=== PATIENT | male | born 1955 | race Two or more races ===

== ENCOUNTER 2023-11-13 18:38 | Emergency (ER) | payer MEDICAID, OTHER, SELFPAY ==
--- NOTE | 2023-11-13 | ECG_ITS ---
Test Reason : DIZZINESS Blood Pressure : / mmHG Vent. Rate : 074 BPM Atrial Rate : 074 BPM P-R Int : 174 ms QRS Dur : 098 ms QT Int : 400 ms P-R-T Axes : 038 020 056 degrees QTc Int : 444 ms Normal sinus rhythm Normal ECG No previous ECGs available Referred By: Micky Villarreal Electronically Signed By:Rush Benavides
--- NOTE | ~2023-11-13 | CT_ITS ---
EXAMINATION: CT HEAD WITHOUT CONTRAST CLINICAL INFORMATION: Dizziness. Stroke. Headache. COMPARISON: None available. TECHNIQUE: Contiguous axial imaging was performed from the skull base to vertex without intravenous administration of contrast. This CT examination was performed using dose optimization techniques as appropriate, variously including the following: *Automated exposure control. *Adjustment of mA and/or kV according to patient size (this includes techniques or standardized protocols for targeted exams where dose is matched to indication/reason for exam; i.e. extremities or head). *Use of iterative reconstruction technique. DLP: 687 mGy-cm FINDINGS: There is no evidence of acute intracranial hemorrhage or edematous territorial infarction. 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 Associated central volume loss with expansion of the bodies and atria of the lateral ventricles. Otherwise, lopez-white matter differentiation is preserved. Scattered and partially confluent hypoattenuation in the periventricular and deep white matter are consistent with moderate microangiopathy. No evidence of obstructive hydrocephalus. No abnormal mass effect or midline shift. No extra-axial fluid collections. Calcific atherosclerotic disease of the intracranial internal carotid and vertebral arteries. No hyperdense vessel sign. No acute soft tissue or osseous abnormalities. Mild mucosal thickening of the paranasal sinuses. The mastoid air cells and middle ear cavities are clear. Moderate multifocal odontogenic enamel erosions and periapical lucencies, most notably affecting the maxillary left-sided molars. Bilateral lens extractions. CT/CT head/brain wo IV con IMPRESSION: 1. No evidence of acute intracranial hemorrhage or edematous territorial infarction. 2. Moderate underlying microangiopathy and generalized cerebral volume loss. 3. 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
[2023-11-13 19:23] VITALS: BP 136/81; BP 157/79; PULSE 76; PULSE 77; RESP 18; TEMP 36.9; O2SAT 97; O2SAT 98; BMI 35.5
[2023-11-13 19:34] LABS: Glucose, Whole Blood 118 mg/dL (60-115)
[2023-11-13 19:57] LABS: MANUAL DIFF FLAG NO
[2023-11-13 19:59] LABS: Basophils Absolute Auto 0.1 X10*3/uL (0.0-0.2); Basophils Percent Auto 0.5 % (0-2); Eosinophils Absolute Auto 0.1 X10*3/uL (0.0-0.4); Eosinophils Percent Auto 1.5 % (0-4); Hematocrit 48.7 % (42.0-52.0); Hemoglobin 16.2 g/dl (14.0-18.0); Imm Gran Abs Auto 0.05 X10*3/uL (0.00-0.03); Imm Gran Pct Auto 0.5 % (0.0-0.4); Lymphocytes Absolute Auto 1.9 X10*3/uL (1.2-4.9); Lymphocytes Percent Auto 20.4 % (20-40); Mean Corpuscular HGB Conc 33.3 g/dl (31.0-36.0); Mean Corpuscular Hemoglobin 29.1 pg (27.0-33.0); Mean Corpuscular Volume 87.4 fL (80.0-98.0); Monocytes Absolute Auto 0.8 X10*3/uL (0.1-1.2); Monocytes Percent Auto 8.6 % (2-11); Neutrophils Absolute Auto 6.4 x10*3/uL (2.0-8.3); Neutrophils Percent Auto 68.5 % (45-73); Platelet Count 199 X10*3/uL (160-400); Red Blood Count 5.57 X10*6/uL (4.60-5.80); Red Cell Distribution Width 14.1 % (11.0-16.0); White Blood Count 9.3 X10*3/uL (4.8-10.8)
[2023-11-13 20:17] LABS: Alanine Aminotransferase 9 U/L (0-40); Albumin Level 4.8 g/dL (3.5-5.0); Alkaline Phosphatase 88 U/L (39-117); Anion Gap 17 (12-20); Aspartate Amino Transferase 22 U/L (5-37); Bilirubin Total 0.7 mg/dL (0.0-1.0); Blood Urea Nitrogen 17 mg/dL (9-16); Calcium 10.7 mg/dL (8.4-10.2); Carbon Dioxide 28 mmol/L (22-29); Chloride 96 mmol/L (96-108); Creatinine Clr Calc Pharmacy 59.3; Estimated Glomerular Filt Rate 57; Glucose Random 119 mg/dL (60-115); Potassium 5.6 mmol/L (3.3-5.1); Sodium 135 mmol/L (135-145); Total Protein 8.9 g/dL (6.5-8.0)
[2023-11-13 22:38] VITALS: BP 173/88; PULSE 81; RESP 18; TEMP 36.8; O2SAT 98
--- NOTE | 2023-11-13 23:28 | ED_ITS ---
HPI - Dizziness General Chief Complaint: Dizziness Stated Complaint: DIZZY WHEN GETTING UP, BI-LAT LOWER LEG EDEMA Time Seen by Provider: 11/13/23 23:16 Source: patient and family Mode of arrival: ambulatory Limitations: language barrier History of Present Illness HPI Narrative: 68-year-old male with history of hypertension diabetes mellitus who presents emergency department for evaluation of dizziness x2 days. Patient states that states that the dizziness is mainly caused by position change. When he gets up at night to get water he feels dizzy like he is going to pass out. When he gets up in the morning he feels like he is going to pass out. He states that by mid day he feels back to normal. Patient has not had any syncopal episodes. He states he does feel fullness in his head but he denies headache. [place] ago and was taking diabetes medications from [place] and ran out of these medicines but was started on metformin b.i.d. for the last 3 days. He does have a glucometer and he reports that his sugars have been in the 200 range. He states he has had a good appetite has been drinking fluids He denied fever, chills, chest pain, shortness of breath, dyspnea exertion, nausea, vomiting, diarrhea, black stools or bloody stools. Denied arthralgias or myalgias Related Data Allergies Allergy/AdvReac Type Severity Reaction Status Date / Time No Known Allergies Allergy Verified 11/13/23 23:29 Review of Systems 2 Review of Systems: Yes all other systems are reviewed and are negative [facility] Past Medical History [facility] Narrative: Social history: He moved from [place] about 6 months prior he is living with his son and granddaughter who are here in the emergency department with the patient Social History Social History Smoked in Last 30 Days: Yes Use of substances other than those prescribed or required for medical reasons: No Advance Directives: No Advance Directives Information Provided: No Physical Exam 2 Vital Signs: Vital Signs: Last Vital Signs Temp 98.3 F 11/13/23 22:38 Pulse 81 11/13/23 23:49 Resp 14 11/13/23 23:49 BP 161/85 H 11/13/23 23:49 Pulse Ox 98 11/13/23 23:49 O2 Del Method Room Air 11/13/23 23:49 BMI result Body Mass Index 35.5 Vital signs did reveal an elevated blood pressure of 173/88 otherwise unremarkable Exam General: Awake, alert in no distress Head: Normocephalic, atraumatic EENT: PERRL, Lids normal, sclera normal, conjunctiva normal, nose normal , ears normal, throat without erythema or exudates Neck: Supple, no adenopathy, no trachea midline or C-spine tenderness Lung: breath sounds symmetric, no wheezing, rales or rhonchi Chest: symmetric movement, nontender Heart: regular rate and rhythm, normal S1, S2 no murmurs or rubs Abdomen: soft, non-tender, nondistended, normal bowel sounds Back: no vertebral tenderness, no CVAT Extremities: no deformities, moves all extremities symmetrically Skin: no rashes, no lesion, normal color and warmth Neuro: Awake, alert, oriented, normal speech, cranial nerves intact, moves all extremities symmetrically Psych: Pleasant, cooperative Medications Administered Discontinued Medications Generic Name Dose Route Start Last Admin Trade Name Freq PRN Reason Stop Dose Admin Sodium Chloride 250 mls @ 999 mls/hr 11/13/23 23:30 11/14/23 00:18 Ns IV 11/13/23 23:45 999 mls/hr .Q16M JASEN Administration Medical Decision Making Medical Decision Making [facility] Narrative: 68-year-old male history of diabetes mellitus, hyper who presents emergency department for evaluation of lightheadedness with position change the past 2-3 days. Symptoms seem to be related to position change but are not vertigo like symptoms but more like a lightheaded passing out symptom. He states he feels that in the morning and at night and it seems resolved during the day. Patient's vital signs were normal. Physical examination was unremarkable with a nonfocal neurologic exam. Following evaluation was ordered: CBC, CMP, urinalysis, troponin, EKG, orthostatic vital signs, CT scan of the brain 00:53 Patient's laboratory evaluation revealed a normal BUN creatinine of 17 and 1.25. Glucose was normal at 119. Potassium was only slightly elevated at 5.6 but does not need treatment. First troponin was below detectable limits repeat troponin was below detectable limits. CT scan of the head revealed no acute 2 explain the patient's dizziness. Twelve EKG was unremarkable Patient's orthostatic vital signs did not change from lying, sitting to standing. He was also asymptomatic with no dizziness during the orthostatic vital signs This time I do not have a clear etiology for the patient's symptoms but I think that he can be discharged home He was advised to increase his fluid intake. He is advised to sit at the side of his bed for 1-2 minutes before he gets up in the middle night to but the bathroom to see if this improves his symptoms Differential Diagnosis Differential Diagnoses: The differential diagnosis associated with the presentation includes Differential diagnosis includes was not limited to stroke, arrhythmia, GI bleed, anemia, orthostatic hypotension, dehydration, volume depletion, vertigo Admission/Observation Consideration of admission/observation: Escalation of care including admission/observation considered Lab Data [facility] Lab Attestation statement: I reviewed the patient's lab results. See [facility] for my discussion 11/13/23 19:53 11/13/23 19:53 Labs: Lab Results 11/13/23 11/13/23 11/14/23 Range/Units 19:29 19:53 00:16 WBC 9.3 (4.8-10.8) X10*3/uL RBC 5.57 (4.60-5.80) X10*6/uL Hgb 16.2 (14.0-18.0) g/dl Hct 48.7 (42.0-52.0) % MCV 87.4 (80.0-98.0) fL MCH 29.1 (27.0-33.0) pg MCHC 33.3 (31.0-36.0) g/dl RDW 14.1 (11.0-16.0) % Plt Count 199 (160-400) X10*3/uL MPV 10.0 (9.4-12.4) fL Immature Gran % (Auto) 0.5 H (0.0-0.4) % Neut % (Auto) 68.5 (45-73) % Lymph % (Auto) 20.4 (20-40) % Forrest % (Auto) 8.6 (2-11) % Eos % (Auto) 1.5 (0-4) % Baso % (Auto) 0.5 (0-2) % Lymph # (Auto) 1.9 (1.2-4.9) X10*3/uL Forrest # (Auto) 0.8 (0.1-1.2) X10*3/uL Eos # (Auto) 0.1 (0.0-0.4) X10*3/uL Baso # (Auto) 0.1 (0.0-0.2) X10*3/uL Abs Immat Gran (auto) 0.05 H (0.00-0.03) X10*3/uL Absolute Neuts (auto) 6.4 (2.0-8.3) x10*3/uL Absolute Nucleated RBC 0.000 (0.0-0.012) X10*3/uL Nucleated RBC % (auto) 0.0 (0.0-0.2) /100WBC Sodium 135 (135-145) mmol/L Potassium 5.6 H (3.3-5.1) mmol/L Chloride 96 (96-108) mmol/L Carbon Dioxide 28 (22-29) mmol/L Anion Gap 17 (12-20) BUN 17 H (9-16) mg/dL Creatinine 1.25 (0.5-1.4) mg/dL Estim Creat Clear Calc 59.3 Estimated GFR 57 POC Glucose 118 H (60-115) mg/dL Random Glucose 119 H (60-115) mg/dL Calcium 10.7 H (8.4-10.2) mg/dL Total Bilirubin 0.7 (0.0-1.0) mg/dL AST 22 (5-37) U/L ALT 9 (0-40) U/L Alkaline Phosphatase 88 (39-117) U/L Troponin I High Sens < 2.7 < 2.7 (<3.5-35.0) ng/L Total Protein 8.9 H (6.5-8.0) g/dL Albumin 4.8 (3.5-5.0) g/dL Independent Interpretation I performed an independent interpretation of an: EKG Interpretation: Twelve EKG done at 23:37 hours is interpreted by me as follows: Normal sinus rhythm with a rate of 74, normal NH interval, QRS duration QTC interval, no ST segment elevation, no ST segment depression, no PVCs, no PACs, no significant T- wave abnormalities Discharge Plan Discharge Clinical Impression: Dizziness Patient Disposition: Home, Self-Care Instructions: Lightheadedness (ED) Additional Instructions: Your blood work was normal. Your EKG was normal. The CT scan of your brain was normal Your blood pressure and pulse did not change from lying, sitting and standing. At this time I do not have a clear cause for your symptoms however it may be that you need to increase your fluid intake. When you get out of bed sit on the side of the bed for at least 2 minutes before you stand to see if this prevents you from getting dizzy. Continue taking your diabetic medications as prescribed Try calling the following numbers to see if you can get a primary care provider to help you with your medical problems. [facility] PCP referral line [facility] Adult primary care and family medicine [facility]
[2023-11-13 23:48] VITALS: BP 161/85; BP 166/91; PULSE 74; PULSE 81
[2023-11-13 23:49] VITALS: BP 160/89; BP 161/85; PULSE 81; PULSE 83; RESP 14; O2SAT 98
[2023-11-13 23:55] LABS: Troponin-I High Sensitivity < 2.7 ng/L (<3.5-35.0)
[2023-11-14] MEDS: 0.9 % Sodium Chloride 250 ML 999 ML IV (00:18)
--- NOTE | 2023-11-14 00:20 | PC.NURSE ---
Pt medicated per jan. IV placed. Plan of care ongoing.
[2023-11-14 00:40] LABS: Troponin-I High Sensitivity < 2.7 ng/L (<3.5-35.0)
== END 2023-11-14 01:15 | disposition home or self-care (01) ==
PROVIDERS: Emergency Provider Emergency Medicine Emergency Medical Services
DX: R42 Dizziness and giddiness (principal)
CPT/HCPCS: 36415; 70450; 80053; 82947; 84484; 85025; 93005; 99284; 99285

== ENCOUNTER → 2023-11-13 23:37 | Outpatient (BNV) | payer SELFPAY | PROVIDERS: Emergency Provider Emergency Medicine Emergency Medical Services; Visit Provider Internal Medicine Cardiovascular Disease | DX: R42 Dizziness and giddiness (principal) | CPT/HCPCS: 93010 ==

== ENCOUNTER 2024-07-18 13:17 | Outpatient (REF) | payer SELFPAY ==
[2024-07-18 14:54] LABS: Alanine Aminotransferase 6 U/L (0-40); Albumin Level 4.3 g/dL (3.5-5.0); Alkaline Phosphatase 133 U/L (39-117); Anion Gap 13 (12-20); Aspartate Amino Transferase 18 U/L (5-37); Bilirubin Total 0.6 mg/dL (0.0-1.0); Blood Urea Nitrogen 9 mg/dL (9-16); Calcium 10.1 mg/dL (8.4-10.2); Carbon Dioxide 27 mmol/L (22-29); Chloride 101 mmol/L (96-108); Cholesterol 102 mg/dL (<200); Estimated Glomerular Filt Rate > 60; Glucose Random 173 mg/dL (60-115); HDL Cholesterol 35 mg/dL (>40); LDL Cholesterol Calculated 53 mg/dL (<100); Potassium 4.6 mmol/L (3.3-5.1); Sodium 136 mmol/L (135-145); Total Protein 7.8 g/dL (6.5-8.0); Triglycerides 74 mg/dL (<150)
[2024-07-18 15:12] LABS: TSH reflex Free T4 0.57 uIU/mL (0.32-4.0)
== END 2024-07-18 13:18 | disposition home or self-care (01) ==
LOC: HO.CHCLDS 13:17
PROVIDERS: Visit Provider Internal Medicine
DX: E78.2 Mixed hyperlipidemia (principal); I10 Essential (primary) hypertension
CPT/HCPCS: 36415; 80053; 80061; 84443

== ENCOUNTER 2024-08-21 10:31 | Outpatient (REF) | payer SELFPAY ==
[2024-08-21 15:21] LABS: MANUAL DIFF FLAG NO
[2024-08-21 15:26] LABS: Basophils Percent Auto 0.5 % (0-2); Eosinophils Absolute Auto 0.1 X10*3/uL (0.0-0.4); Eosinophils Percent Auto 1.6 % (0-4); Hematocrit 42.1 % (42.0-52.0); Hemoglobin 13.5 g/dl (14.0-18.0); Imm Gran Abs Auto 0.04 X10*3/uL (0.00-0.03); Imm Gran Pct Auto 0.5 % (0.0-0.4); Lymphocytes Absolute Auto 1.7 X10*3/uL (1.2-4.9); Lymphocytes Percent Auto 20.6 % (20-40); Mean Corpuscular HGB Conc 32.1 g/dl (31.0-36.0); Mean Corpuscular Hemoglobin 28.2 pg (27.0-33.0); Mean Corpuscular Volume 88.1 fL (80.0-98.0); Mean Platelet Volume 11.3 fL (9.4-12.4); Monocytes Absolute Auto 0.6 X10*3/uL (0.1-1.2); Monocytes Percent Auto 7.5 % (2-11); Neutrophils Absolute Auto 5.8 x10*3/uL (2.0-8.3); Neutrophils Percent Auto 69.3 % (45-73); Platelet Count 164 X10*3/uL (160-400); Red Blood Count 4.78 X10*6/uL (4.60-5.80); Red Cell Distribution Width 14.6 % (11.0-16.0); White Blood Count 8.3 X10*3/uL (4.8-10.8)
[2024-08-21 16:02] LABS: Alanine Aminotransferase 7 U/L (0-40); Albumin Level 4.2 g/dL (3.5-5.0); Alkaline Phosphatase 106 U/L (39-117); Anion Gap 13 (12-20); Aspartate Amino Transferase 17 U/L (5-37); Bilirubin Total 0.6 mg/dL (0.0-1.0); Blood Urea Nitrogen 11 mg/dL (9-16); Carbon Dioxide 27 mmol/L (22-29); Chloride 101 mmol/L (96-108); Cholesterol 102 mg/dL (<200); Estimated Glomerular Filt Rate > 60; Glucose Fasting 131 mg/dL (60-99); HDL Cholesterol 35 mg/dL (>40); LDL Cholesterol Calculated 50 mg/dL (<100); Potassium 5.4 mmol/L (3.3-5.1); Sodium 136 mmol/L (135-145); Total Protein 7.4 g/dL (6.5-8.0); Triglycerides 88 mg/dL (<150)
[2024-08-21 16:04] LABS: TSH reflex Free T4 0.66 uIU/mL (0.32-4.0); Vitamin D 25-OH Total 23.5 ng/mL (>30)
[2024-08-21 16:08] LABS: Osmolality, Serum 292 mosm/kg (281-305)
[2024-08-21 16:33] LABS: Osmolality Urine 503 mosm/kg (373-1093)
[2024-08-22 15:48] LABS: HCV RNA PCR Qn <1.18 NOT DETECTED Log IU/mL (NOT DETECTED); HCV RNA PCR Qn <15 NOT DETECTED IU/mL (NOT DETECTED)
== END 2024-08-21 10:32 | disposition home or self-care (01) ==
LOC: HO.CHCLDS 10:31
PROVIDERS: PCP Internal Medicine; Visit Provider Internal Medicine
DX: I10 Essential (primary) hypertension (principal)
CPT/HCPCS: 36415; 80053; 80061; 82306; 83930; 83935; 84443; 85025; 87522

== ENCOUNTER 2025-05-22 09:20 | Outpatient (REF) | payer SELFPAY ==
--- OUTSIDE RECORDS SUMMARY | 2025-05-22 09:59 | XMS_ITS | Clinical Summary ---
Author Organization [facility] Address [address] [facility] [address] [place] [address] Phone Care Team Providers Care Revenue Agent Name Role Phone Unavailable Primary Care Provider Unavailabl e Allergies No known active allergies Medications aspirin (ST SHAYNE) 81 MG EC tablet Take 81 mg by mouth 1 (one) time each day Active atorvastatin (LIPITOR) 40 MG tablet Take 40 mg by mouth 1 (one) time each day Active meclizine (ANTIVERT) 12.5 MG tablet Take 12.5 mg by mouth 3 (three) times a day if needed for dizziness Active pantoprazole (PROTONIX) 20 MG EC tablet Take 20 mg by mouth 1 (one) time each day before breakfast Do not crush, chew, or split. Active atenolol (Tenormin) 25 MG tabletIndications :Essential (primary) hypertension Take 1 tablet (25 mg total) by mouth 1 (one) time each day 30 tablet 11 4 Active metFORMIN (GLUCOPHAGE) 500 MG tabletIndications :Type 2 Diabetes Mellitus Take 2 tablets (1,000 mg total) by mouth in the morning and 2 tablets (1,000 mg total) in the evening. Take with meals. 120 tablet 11 4 Active Active Problems Problem Noted Date Diagnosed Date Gas pain 04/20/2024 Hypo-osmolality and hyponatremia 03/20/2024 Assessment & Plan (04/16/2024 11:00 PM EDT): Sodium level normal at 138 as of 02/2024 On sodium chloride 2 gm tabs twice a day Will continue to monitor Edema 03/20/2024 Transient cerebral ischemic attack 03/20/2024 Essential (primary) hypertension 03/20/2024 Overview (04/16/2024): Follow low NA diet Avoid NSAIDs/Decongestant medications Target BP <120/80 Assessment & Plan (04/16/2024 10:58 PM EDT): Blood pressure adequately controlled, better on second reading 120/62 On single therapy Amlodipine 5 mg QD Chronic stable swelling No medication changes made today Hyperlipidemia 03/20/2024 Family History Medical History Relation Comments Cancer Father Relation Status Comments Father Social History Tobacco Use Types Packs/Day Years Used Date Smoking Tobacco: Never Tobacco Cessation:Counseling Given: Not Answered Alcohol Use Standard Drinks/Week Comments Never 0 (1 standard drink = 0.6 oz pur e alcohol) Sex and Gender Information Value Date Recorded Sex Assigned at Not on file Legal Sex Male 4:02 PM EDT Gender Identity Not on file Sexual Orientation Not on file Last Filed Vital Signs Vital Sign Reading Time Taken Comments Blood Pressure 122/60 04/20/2024 3:21 PM EDT Pulse 82 04/20/2024 2:56 PM EDT Temperature - - Respiratory Rate - - Oxygen Saturation - - Inhaled Oxygen Concentration - - Weight 94.8 kg (209 lb) 04/20/2024 2:56 PM EDT Height - - Body Mass Index - - Plan of Treatment Health Maintenance Due Date Last Done Comments Pneumococcal Vaccine: 50+ Ye ars (1 of 2 - PCV) 1974 Colorectal Cancer Screening: Annual FOBT 2004 Colorectal Cancer Screening: Colonoscopy 2004 Colorectal Cancer Screening: Sigmoidoscopy 2004 Diabetes: Ophthalmology Exam 04/20/2024 Diabetes: Pedal Pulse Checked 04/20/2024 Diabetes: Sensory Foot Exam 04/20/2024 Diabetes: Visual Foot Exam 04/20/2024 Diabetes: Hemoglobin A1C 07/21/2024 04/20/2024 Influenza Vaccine (Season Ended) 2025 Hepatitis B Vaccine Aged Out No longe r eligible based on patient's age to complete this topic Procedures Procedure Name Priority Date/Time Associated Diagnosis Comments HEMOGLOBIN A1C Routine 04/20/2024 3:54 PM EDT Gas pain from Last 3 Months or Most Recently Relevant to Health Maintenance Results * (ABNORMAL) Hemoglobin A1c (04/20/2024 3:54 PM EDT) Hemoglobin A1C 7.8(H) 4.8 - 5.6 % See order comments Comment: Prediabetes: 5.7 - 6.4 Diabetes: >6.4 Glycemic control for adults with diabetes: <7.0 Blood specimen (specimen) Venous blood / Unknown 04/20/2024 3:54 PM EDT 04/20/2024 Narrative [facility] - 04/21/2024 4:06 AM EDT Performed at: 01 - [facility] [id number] [place] Animal: Hellen Lindsay MD, Phone: [phone] us Emily [facility] LAB BLOOD ORDERABLES Final Result [facility] See order comments [place] [address] from Last 3 Months or Most Recently Relevant to Health Maintenance
[2025-05-22 14:36] LABS: Alanine Aminotransferase 7 U/L (0-40); Albumin Level 4.2 g/dL (3.5-5.0); Alkaline Phosphatase 114 U/L (39-117); Anion Gap 12 (12-20); Aspartate Amino Transferase 25 U/L (5-37); Bilirubin Direct 0.3 mg/dL (0.0-0.5); Bilirubin Total 0.8 mg/dL (0.0-1.0); Blood Urea Nitrogen 11 mg/dL (9-16); Calcium 9.1 mg/dL (8.4-10.2); Carbon Dioxide 26 mmol/L (22-29); Chloride 104 mmol/L (96-108); Cholesterol 103 mg/dL (<200); Estimated Glomerular Filt Rate > 60; Glucose Random 168 mg/dL (60-115); HDL Cholesterol 36 mg/dL (>40); LDL Cholesterol Calculated 53 mg/dL (<100); Potassium 3.9 mmol/L (3.3-5.1); Sodium 138 mmol/L (135-145); Total Protein 7.2 g/dL (6.5-8.0); Triglycerides 74 mg/dL (<150)
== END 2025-05-22 09:21 | disposition home or self-care (01) ==
LOC: HO.CHCLDS 09:20
PROVIDERS: Visit Provider Student in an Organized Health Care Education/Training Program
DX: I10 Essential (primary) hypertension (principal); E78.1 Pure hyperglyceridemia
CPT/HCPCS: 36415; 80048; 80061; 80076

== ENCOUNTER 2025-08-03 10:14 | Outpatient (REF) | payer SELFPAY ==
--- OUTSIDE RECORDS SUMMARY | 2025-08-03 09:00 | XMS_ITS | Encounter Summary ---
Author Organization [employer] Address [address] [facility] [address] [address] Care Team Providers Care Fast Food Services Manager Name Role Phone Soraida Prieto MD Primary Care Provider [phone] Reason for Visit * Reason Comments Diabetes Hypertension Encounter Details Date Type Department Care Team (Latest Contact Info) Description 08/03/2025 9:00 AM EDT Office Visit [facility] [address] [place], [place] [id number] Soraida Prieto MD [address] [place] [address] Pure hypertriglyceridemia (Primary Dx); Essential (primary) hypertension; Edema, unspecified type; Type 2 diabetes mellitus without complication, without long-term current use of insulin ([facility]); Encounter for immunization; Urinary frequency Social History Tobacco Use Types Packs/Day Years Used Date Smoking Tobacco: Never Smokeless Tobacco: Current Chew Tobacco Cessation:Ready to Q uit: Not Asked; Counseling Given: Not Answered Depression Answer Date Recorded Patient Health Questionnaire-9 Score 0 08/03/2025 Patient Health Questionnaire-9 Score 0 08/03/2025 Last PHQ-9: Questionnaire Data Not on file 0 08/03/2025 Housing Stability Answer Date Recorded What is your housing situation today? I have manju sing 07/18/[address] you li ve. Do you have problems with any of the following? None of the above 07/18/2024 Food Insecurity Answer Date Recorded Within the past 12 months, y ou worried that your food would run out before you got money to buy more: Never True 07/18/2024 Within the past 12 months,th e food you bought just didn't last and you didn't have enough money to get more: Never True Transportation Answer Date Recorded In the past 12 months, has l ack of transportation kept you from medical appts, meetings, work or from getting things needed for daily living? No 07/18/2024 Utilities Answer Date Recorded In the past 12 months, has t he electric, gas, oil or water company threatened to shut off services in your home? No 07/18/2024 Depression Answer Date Recorded Patient Health Questionnaire-2 Score 0 08/03/2025 Internet Access Answer Date Recorded Internet Access Q1 Yes 07/31/2024 Internet Access Q2 Not on file 07/31/2024 Sex and Gender Information Value Date Recorded Sex Assigned at Male 08/01/2024 10:21 AM EDT Legal Sex Male 2:36 PM EDT Gender Identity Male 08/01/2024 10:21 AM EDT Sexual Orientation Straight 08/01/2024 10 :21 AM EDT documented as of this encounter Last Filed Vital Signs Vital Sign Reading Time Taken Comments Blood Pressure 167/84 08/03/2025 9:16 AM EDT Pulse 62 08/03/2025 9:16 AM EDT Temperature 36.5 C (97.7 F) 08/03/2025 9:16 AM EDT Respiratory Rate 20 08/03/2025 9:16 AM EDT Oxygen Saturation - - Inhaled Oxygen Concentration - - Weight 95.7 kg (211 lb) 08/03/2025 9:16 AM EDT Height 170.2 cm (5' 7 ) 08/03/2025 9:16 AM EDT Body Mass Index 33.05 08/03/2025 9:16 AM EDT documented in this encounter Functional Status * Over the past 2 weeks, how often have you been bothered by any of the following problems? Question Answer Date of Assessment Author Patient Health Questionnaire -2 Score 0 08/03/2025 9:25 AM EDT Lavinia Salas MA * Little interest or pleasure in doing things Answer Date of Assessment Author Not at all 08/03/2025 9:25 AM EDT Markell Salas MA * Feeling down, depressed, or hopeless Answer Date of Assessment Author Not at all 08/03/2025 9:25 AM EDT Markell Salas MA * Trouble falling or staying asleep, or sleeping too much Answer Date of Assessment Author Not at all 08/03/2025 9:25 AM EDMarkell Darnell MA * Feeling tired or having little energy Answer Date of Assessment Author Not at all 08/03/2025 9:25 AM Markell Levy MA * Poor appetite or overeating Answer Date of Assessment Author Not at all 08/03/2025 9:25 AM EDMarkell Darnell MA * Feeling bad about yourself - or that you are a failure or have let yourself or your family down Answer Date of Assessment Author Not at all 08/03/2025 9:25 AM Markell Levy MA * Trouble concentrating on things, such as reading the newspaper or watching television Answer Date of Assessment Author Not at all 08/03/2025 9:25 AM Markell Levy MA * Moving or speaking so slowly that other people could have noticed? Or the opposite - being so fidgety or restless that you have been moving around a lot more than usual. Answer Date of Assessment Author Not at all 08/03/2025 9:25 AM Markell Levy MA * Thoughts that you would be better off or hurting yourself in some way Answer Date of Assessment Author Not at all 08/03/2025 9:25 AM Markell Levy MA * Patient Health Questionnaire-9 Score Answer Date of Assessment Author 0 08/03/2025 9:25 AM EDMarkell Darnell MA documented as of this encounter Progress Notes * Soraida Prieto MD - 08/03/2025 9:00 AM EDT Subjective Patient ID: [id number] Ivy is a 70 y.o. male who presents for No chief complaint on file.. Diabetes He presents for his follow-up diabetic visit. He has type 2 diabetes mellitus. His disease course has been stable. There are no hypoglycemic associated symptoms. There are no diabetic associated symptoms. There are no hypoglycemic complications. Symptoms are stable. There are no diabetic complications. Review of Systems Constitutional: Negative. Respiratory: Negative. Cardiovascular: Negative. Gastrointestinal: Negative. Genitourinary: Negative. Objective Physical Exam Constitutional: Appearance: Normal appearance. Cardiovascular: Rate and Rhythm: Normal rate and regular rhythm. Pulmonary: Effort: Pulmonary effort is normal. Breath sounds: Normal breath sounds. Neurological: General: No focal deficit present. Mental Status: He is alert. Psychiatric: Mood and Affect: Mood normal. Behavior: Behavior normal. Assessment/Plan Diagnoses and all orders for this visit: Pure hypertriglyceridemia Comments: Stable Advised to maintain a low-fat, low-cholesterol diet. Counseled regarding importance of weight loss. Essential (primary) hypertension Comments: Stable No changes in meds Maintain a low-sodium diet (less than 2 grams per day). Maintain a regular cardiovascular exercise program. Orders: - verapamil SR (Calan SR) 120 MG ER tablet; Take 1 tablet (120 mg) by mouth Once per day. Do not crush or chew. - Basic Metabolic Panel; Future - Lipid Panel, Standard; Future - Hepatic Function Panel; Future Edema, unspecified type Comments: Improving with Lasix advised leg elevation while resting Type 2 diabetes mellitus without complication, without long-term current use of insulin (CMS/HCC) Comments: Stable Cont Metformin 500 BID Advised Low sugar and Low carb diet. Counseled regarding self-monitoring of blood glucose. Counseled re: potential co-morbidities including cardiovascular disease. Counseled re: potential co-morbidities include neuropathy and retinopathy. Counseled re: potential co-morbidities include nephropathy. Orders: - Basic Metabolic Panel; Future - Lipid Panel, Standard; Future - POCT Glucose - POCT Hgb A1c Encounter for immunization - TDAP VACCINE 7 yrs + Urinary frequency Comments: PSa ordered Orders: - PSA, Total With Reflex to PSA, Free; Future documented in this encounter Plan of Treatment Scheduled Orders Name Type Priority Associated Diagnoses Orde r Schedule Basic Metabolic Panel Lab Routine Essential (primary) hypertension Type 2 diabetes mellitus without complication, without long-term current use of insulin (CMS/HCC) Expected: 08/03/2025 (Approximate), Expires: 08/03/2026 Lipid Panel, Standard Lab Routine Essential (primary) hypertension Type 2 diabetes mellitus without complication, without long-term current use of insulin (CMS/HCC) Expected: 08/03/2025 (Approximate), Expires: 08/03/2026 Hepatic Function Panel Lab Routine Essential (primary) hypertension Expected: 08/03/2025 (Approximate), Expires: 08/03/2026 PSA, Total With Reflex to PSA, Free Lab Routine Urinary frequency Expected: 08/03/2025 (Approximate), Expires: 08/03/2026 documented as of this encounter Procedures Procedure Name Priority Date/Time Associated Diagnosis Comments POCT GLYCATED HEMOGLOBIN, TOTAL Routine 08/03/2025 9:27 AM EDT Type 2 diabetes mellitus without complication, without long-term current use of insulin ([facility]) POCT GLUCOSE Routine 08/03/2025 9:26 AM EDT Type 2 diabetes mellitus without complication, without long-term current use of insulin ([facility]) documented in this encounter Results * (ABNORMAL) POCT Hgb A1c (08/03/2025 9:27 AM EDT) Hemoglobin A1C 8.2(A) 4.0 - 5.7 % QC Media Lot # [id number] Lot# Expiration Date Blood 08/03/2025 9:27 AM EDT Soraida Prieto MD POINT OF CARE TEST ENTER/EDIT OR DERABLES Final Result * (ABNORMAL) POCT Glucose (08/03/2025 9:26 AM EDT) Glucose Blood, POC 202(A) 60 - 200 mg/dL QC Media Lot # [id number] Lot# Expiration Date Blood Capillary blood specimen / Unknown 08/03/2025 9:26 AM EDT Result [facility] Soraida Prieto MD POINT OF CARE TEST ENTER/EDIT OR DERABLES Final Result documented in this encounter Visit Diagnoses Diagnosis Pure hypertriglyceridemia- Primary Essential (primary) hypertension Unspecified essential hypertension Edema, unspecified type Type 2 diabetes mellitus without complication, without long-term current use of insulin ([facility]) Encounter for immunization Urinary frequency documented in this encounter Additional Health Concerns Assessment Noted Time PHQ-9 Depression Total Score: 0 09/05/20 25 9:25 AM EDT documented as of this encounter Care Teams Fast Food Services Manager Relationship Specialty Start Date End Date Soraida Prieto MD [address] [place], [place] [address] [address] PCP - General Family Medicine 10/31/24 documented as of this encounter
--- OUTSIDE RECORDS SUMMARY | 2025-08-03 11:10 | XMS_ITS | Encounter Summary ---
Author Organization [facility] Address [address] [address] [facility] [address] [place] [address] Phone Care Team Providers Care Pediatric Acute Care Unit Nurse Name Role Phone Unavailable Primary Care Provider Unavailabl e Encounter Details Date Type Department Care Team ([facility] st Contact Info) Description 04/20/2024 Office Communication [facility] [address] [facility] [address] [place] [address] Emily Levy ARNP [address] [facility] [address] [place] [address] Social History Tobacco Use Types Packs/Day Years Used Date Smoking Tobacco: Never Alcohol Use Standard Drinks/Week Comments Never 0 (1 standard drink = 0.6 oz pur e alcohol) Sex and Gender Information Value Date Recorded Sex Assigned at Not on file Legal Sex Male 4:02 PM EDT Gender Identity Not on file Sexual Orientation Not on file documented as of this encounter Plan of Treatment Not on file documented as of this encounter Visit Diagnoses Not on filedocumented in this encounter
--- OUTSIDE RECORDS SUMMARY | 2025-08-03 11:10 | XMS_ITS | Clinical Summary ---
Author Organization [employer] Address [address] [facility] [address] [place] [address] Care Team Providers Care Plywood Layup Line Core Feeder Name Role Phone Soraida Prieto MD Primary Care Provider [phone] Allergies No known active allergies Medications pantoprazole (ProtoNix) 20 MG EC tablet Take 1 tablet (20 mg) by mouth Once per day. 90 tablet 3 08/02/20 24 Active losartan (Cozaar) 25 MG tabletIndicatio ns:Essential (primary) hypertension Take 1 tablet (25 mg) by mouth Once per day. 30 tablet 11 08/21/20 24 2024 Active Elastic Bandages & Supports (Medical Compression Stockings) miscIndications :Swelling of lower limb 15/20 mm/Hg. Knee high. Compression stockings. 1 each 08/21/20 24 Active hydroCHLOROthia zide (HYDRODiuril) 25 MG tablet Take 1 tablet (25 mg) by mouth Once per day. 30 tablet 11 10/03/20 24 2024 Active cholecalciferol (Vitamin D-3) 25 MCG (1000 UT) tablet Take 1 tablet (25 mcg) by mouth Once per day. 90 tablet 3 10/05/20 24 2024 Active metFORMIN (Glucophage) 500 MG tabletIndicatio ns:Controlled type 2 diabetes mellitus with hyperglycemia, without long-term current use of insulin ([facility]) Take 1 tablet (500 mg) by mouth 2 times daily. 180 tablet 3 10/31/20 24 Active cholecalciferol (Vitamin D-3) 25 MCG (1000 UT) capsule Take 1 capsule (25 mcg) by mouth Once per day. 30 capsule 11 10/31/20 24 2024 Active simethicone (Gas-X Ultra Strength) 180 MG capsule Take 1 capsule (180 mg) by mouth every 6 (six) hours if needed for flatulence. 30 capsule 12/26/192025 Active furosemide (Lasix) 20 MG tablet Take 1 tablet (20 mg) by mouth 2 times daily. 60 tablet 05/01/202025 Active sodium chloride 1 g tablet TAKE TWO TABLETS IN THE MORNING AND EVENING 120 tablet 05/08/20 25 Active atenolol (Tenormin) 25 MG tabletIndicatio ns:Essential (primary) hypertension TAKE ONE TABLET BY MOUTH ONCE DAILY 90 tablet 07/25/20 25 Active atorvastatin (Lipitor) 40 MG tabletIndicatio ns:Essential (primary) hypertension TAKE ONE TABLET BY MOUTH AT BEDTIME 90 tablet 08/01/20 25 Active Aspirin Adult Low Strength 81 MG EC tablet TAKE ONE TABLET BY MOUTH ONCE DAILY 90 tablet 08/01/20 25 Active verapamil SR (Calan SR) 120 MG ER tabletIndicatio ns:Essential (primary) hypertension Take 1 tablet (120 mg) by mouth Once per day. Do not crush or chew. 90 tablet 08/03/202025 Active aspirin 81 MG EC tablet Take 1 tablet (81 mg) by mouth Once per day. 30 tablet 08/02/20 24 2024 Discontinued atenolol (Tenormin) 25 MG tabletIndicatio ns:Essential (primary) hypertension Take 1 tablet (25 mg) by mouth Once per day. 30 tablet 08/02/20 24 2024 Discontinued atorvastatin (Lipitor) 40 MG tabletIndicatio ns:Essential (primary) hypertension Take 1 tablet (40 mg) by mouth at bedtime. 90 tablet 08/02/20 24 2024 Discontinued verapamil SR (Calan SR) 120 MG ER tabletIndicatio ns:Essential (primary) hypertension Take 1 tablet (120 mg) by mouth Once per day. Do not crush or chew. 90 tablet 08/02/20 24 2024 Discontinued(R eorder (will not trigger notification to Pharmacy)) Active Problems Problem Noted Date Diagnosed Date Type 2 diabetes mellitus wit hout complication, without long-term current use of insulin 08/03/2025 Edema 08/03/2025 Essential (primary) hypertension 03/20/2024 Overview (08/21/2024): Follow low NA diet Avoid NSAIDs/Decongestant medications Target BP <120/80 Last Assessment & Plan: Blood pressure adequately controlled, better on second reading 120/62 On single therapy Amlodipine 5 mg QD Chronic stable swelling No medication changes made today Hyperlipidemia 03/20/2024 Hypo-osmolality and hyponatremia 03/20/2024 Overview (08/21/2024): Last Assessment & Plan: Sodium level normal at 138 as of 02/2024 On sodium chloride 2 gm tabs twice a day Will continue to monitor Encounters Date Type Department Care Team Description 08/03/2025 9:00 AM EDT Office Visit [facility] [address] [place] [address] Soraida Prieto MD Pure hypertriglyceridemia (Primary Dx); Essential (primary) hypertension; Edema, unspecified type; Type 2 diabetes mellitus without complication, without long-term current use of insulin ([facility]); Encounter for immunization; Urinary frequency 08/03/2025 Travel 08/02/2025 Telephone [facility] [address] [place] [address] Soraida Prieto MD Chart Prep 08/01/2025 Refill [facility] [address] [place] [address] Soraida Prieto MD Essential (primary) hypertension 07/24/2025 Refill [facility] [address] [place] [address] Soraida Prieto MD Essential (primary) hypertension 07/12/2025 Telephone [facility] [address] [place] [address] Soraida Prieto MD 07/03/2025 Telephone [facility] [address] [place] [address] Soraida Prieto MD cologuard outreach unreturned kit reminder 05/24/2025 Telephone [facility] [address] [place] [address] Soraida Prieto MD 05/23/2025 Results Follow-Up [facility] [address] [address] Soraida Prieto MD Basic Metabolic Panel, Lipid Panel, Standard, Hepatic Function Panel 05/07/2025 Refill [facility] [address] [place] [id number] Soraida Prieto MD from Last 3 Months Immunizations Immunization Administration Dates Next Due Influenza, seasonal, injectable, preservative fr ee 08/21/2024 Pneumococcal Conjugate PCV 20 08/21/2024 Tdap 08/03/2025 Social History Tobacco Use Types Packs/Day Years [...] your housing situation today? I have manju clemente 07/18/[address] you li [...] Orientation Straight 08/01/2024 10 :21 AM EDT Last Filed Vital Signs Vital Sign Reading Time Taken Comments Blood Pressure 167/84 08/03/2025 9:16 AM EDT Pulse 62 08/03/2025 9:16 AM EDT Temperature 36.5 C (97.7 F) 08/03/2025 9:16 AM EDT Respiratory Rate 20 08/03/2025 9:16 AM EDT Oxygen Saturation 97% 05/01/2025 9:13 AM EDT Inhaled Oxygen Concentration - - Weight 95.7 kg (211 lb) 08/03/2025 9:16 AM EDT Height 170.2 cm (5' 7 ) 08/03/2025 9:16 AM EDT Body Mass Index 33.05 08/03/2025 9:16 AM EDT Plan of Treatment Health Maintenance Due Date Last Done Comments CT Colonography 1955 Colonoscopy 1955 Colorectal Cancer Screening 1955 FIT DNA/Cologuard 1955 FIT 1955 FOBT 1955 Sigmoidoscopy 1955 Diabetes: Foot Exam 1965 Eye Exam 1965 Diabetes: Urine Protein Screening 1974 Zoster Vaccines (1 of 2) 2005 RSV Patients and Patients Aged 60 years or older (1 - Risk 60-74 years 1-dose series) 2015 SDOH Screening 07/10/2025 07/10/2024 COVID-19 Vaccine ( - season) 2025 Influenza Vaccine (#1) 2025 08/21/2024 Diabetes: Hemoglobin A1C 11/02/2025 025, 05/01/2025, 10/31/2024, Additional history exists Lipid Panel 05/22/2026 05/22/2025, 10/03/2024 Alcohol/Substance Use Screening 08/03/2026 08/03/2025 Depression Screening 08/03/2026 08/03/2025, 08/03/20 Tobacco Screening 08/03/2026 08/03/2025 DTaP/Tdap/Td Vaccines (2 - Td or Tdap) 08/03/2035 08/03/2025 Pneumococcal Vaccine: 50+ Years Completed 08/21/2024 Hepatitis C Screening Completed 10/03/2024 HIB Vaccines Aged Out No longer eligi ble based on patient's age to complete this topic HPV Vaccines Aged Out No longer eligi ble based on patient's age to complete this topic Hepatitis A Vaccines Aged Out No long er eligible based on patient's age to complete this topic Hepatitis B Vaccines Aged Out No long er eligible based on patient's age to complete this topic IPV Vaccines Aged Out No longer eligi ble based on patient's age to complete this topic Meningococcal B Vaccine Aged Out No l onger eligible based on patient's age to complete this topic Meningococcal Vaccine Aged Out No german peggy eligible based on patient's age to complete this topic RSV under 20 months Aged Out No longe r eligible based on patient's age to complete this topic Rotavirus Vaccines Aged Out No longer eligible based on patient's age to complete this topic Procedures Procedure Name Priority Date/Time Associated Diagnosis Comments POCT GLYCATED HEMOGLOBIN, TOTAL Routine 08/03/2025 9:27 AM EDT Type 2 diabetes mellitus without complication, without long-term current use of insulin ([facility]/H[facility]) POCT GLUCOSE Routine 08/03/2025 9:26 AM EDT Type 2 diabetes mellitus without complication, without long-term current use of insulin (CMS/HCC) HEPATIC FUNCTION PANEL Routine 05/22/2025 9:25 AM EDT Essential (primary) hypertension LIPID PANEL, STANDARD Routine 05/22/2025 9:25 AM EDT Essential (primary) hypertension Pure hypertriglyceridemia BASIC METABOLIC PANEL Routine 05/22/2025 9:25 AM EDT Essential (primary) hypertension HEPATITIS C VIRAL RNA, QUANTITATIVE, REAL-TIME PCR Routine 10/03/2024 10:50 AM EST Controlled type 2 diabetes mellitus with hyperglycemia, without long-term current use of insulin ([facility]) from Last 3 Months or Most Recently Relevant to Health Maintenance Results * (ABNORMAL) POCT Hgb A1c (08/03/2025 9:27 AM EDT) Pathologist [facility] [place] Hemoglobin A1C 8.2(A) 4.0 - 5.7 % QC Media Lot # [id number] Lot# Expiration Date Blood 08/03/2025 9:27 AM EDT us Soraida Prieto MD POINT OF CARE TEST ENTER/EDIT OR DERABLES Final Result * (ABNORMAL) POCT Glucose (08/03/2025 9:26 AM EDT) Pathologist [facility] [place] Glucose Blood, POC 202(A) 60 - 200 mg/dL QC Media Lot # [id number] Lot# Expiration Date Blood Capillary blood specimen / Unknown 08/03/2025 9:26 AM EDT us Soraida Prieto MD POINT OF CARE TEST ENTER/EDIT OR DERABLES Final Result * Hepatic Function Panel (05/22/2025 9:25 AM EDT) [facility] Bilirubin, Total 0.8 0.0 - 1.0 mg/dL [facility] Bilirubin, Direct 0.3 0.0 - 0.5 mg/dL [facility] Aspartate Amino Transferase 25 5 - 37 U/L [facility] Alanine Aminotransferase 7 0 - 40 U/L [facility] Total Protein 7.2 6.5 - 8.0 g/dL [facility] Albumin Level 4.2 3.5 - 5.0 g/dL [facility] Alkaline Phosphatase 114 39 - 117 U/L [facility] Blood Venous blood specimen / Unknown 05/22/2025 9:25 AM EDT 05/22/2025 1:58 PM EDT us Soraida Prieto MD LAB BLOOD ORDERABLES Final Resul t [facility] [address] [place] [address] [phone] * (ABNORMAL) Lipid Panel, Standard (05/22/2025 9:25 AM EDT) Triglycerides 74 <150 mg/dL [facility] Comment:Desirable Triglyceri de: less than 150 mg/dLBorderline High Triglyceride 150-199 mg/dLHigh Triglyceride: 200-499 mg/dLVery High Triglyceride: greater than or equal to 5OO mg/dL Cholesterol 103 <200 mg/dL [facility] Comment:Desirable Cholestero l: less than 200 mg/dLBorderline High Cholesterol: 200-239 mg/dLHigh Cholesterol: greater than 239 mg/dL LDL Cholesterol Calculated 53 <100 mg/dL [facility] Comment:Desirable LDL: less than 100 mg/dLNear Optimal/Above Optimal LDL: 110- 129 mg/dLBorderline High LDL: 130-159 mg/dLHigh LDL: 160-189 mg/dLVery High LDL: greater than or equal to 190 mg/dL HDL Cholesterol 36(L) >40 mg/dL [facility] Comment:Desirable HDL: great er than 40 mg/dL Note: This HDL assay may give artificially low results in patients with liver disease. Blood Venous blood specimen / Unknown 05/22/2025 9:25 AM EDT 05/22/2025 1:58 PM EDT us Soraida Prieto MD LAB BLOOD ORDERABLES Final Resul t [facility] [address] [place] [address] [phone] * (ABNORMAL) Basic Metabolic Panel (05/22/2025 9:25 AM EDT) Sodium 138 135 - 145 mmol/L [facility] Potassium 3.9 3.3 - 5.1 mmol/L [facility] Chloride 104 96 - 108 mmol/L [facility] Carbon Dioxide 26 22 - 29 mmol/L [facility] Anion Gap 12 12 - [address] [facility] Urea Nitrogen (BUN) 11 9 - 16 mg/dL [facility] Creatinine, Serum 0.86 0.5 - 1.4 mg/dL [facility] Estimated Glomerular Filt Rate >[address] [facility] Comment:Chronic Kidney Disea se: Estimated GFR < 60 mL/min/[id number] Kidney Disease: Estimated GFR < 15 mL/min/1.73m2 Glucose 168(H) 60 - 115 mg/dL [facility] Calcium 9.1 8.4 - 10.2 mg/dL [facility] Blood Venous blood specimen / Unknown 05/22/2025 9:25 AM EDT 05/22/2025 1:58 PM EDT Soraida Prieto MD LAB BLOOD ORDERABLES Final Resul t [facility] [address] [place] [address] [phone] * Hepatitis C Viral RNA, Quantitative, Real-Time PCR (10/03/2024 10:50 AM EST) Hepatitis C Viral Load <15 NOT DETECTED NOT DETECTED IU/mL [facility] HCV Log PCR <1.18 NOT DETECTED NOT DETECTED Log IU/mL [facility] Comment:For additional infor saul, please refer [email or web address].[employer]/faq/HCK11c0(This link is being provided for informational/educational purposes only.)THIS TEST WAS PERFORMED AT:[employer] [place] [phone] ALY MD Blood Venous blood specimen / Unknown 10/03/2024 10:50 AM EST 10/03/2024 2:23 PM EST us Alec Lang MD LAB BLOOD ORDERABLES Final Result [facility] [address] [place] [address] [phone] from Last 3 Months or Most Recently Relevant to Health Maintenance Insurance [employer] [facility] FULL Care Teams Plywood Layup Line Core Feeder Relationship Specialty Start Date End Date Soraida Prieto MD [address] [place] [phone] PCP - General Family Medicine 10/31/24
--- OUTSIDE RECORDS SUMMARY | 2025-08-03 11:10 | XMS_ITS | Encounter Summary ---
Author Organization [employer] Address [address] [place] [address] Care Team Providers Care Front Desk Assistant Name Role Phone Soraida Prieto MD Primary Care Provider [phone] Encounter Details Date Type Department Care Team (Latest Contact Info) Description 08/03/2025 Travel Social History Tobacco Use Types Packs/Day Years Used Date Smoking Tobacco: Never Smokeless Tobacco: Current Chew Depression Answer Date Recorded Patient Health Questionnaire-9 Score 0 08/03/2025 Patient Health Questionnaire-9 Score 0 08/03/2025 Last PHQ-9: Questionnaire Data Not on file 0 08/03/2025 Housing Stability Answer Date Recorded What is your housing situation today? I have manjumeri clemente 07/18/[address] you [...] AM EDT documented as of this encounter Functional Status * Over the [...] 9:25 AM Markell Levy MA * Trouble falling or staying asleep, or sleeping too much Answer Date of Assessment Author Not at all 08/03/2025 9:25 AM EDT Markell Salas MA * Feeling tired or having little energy Answer Date of Assessment Author Not at all 08/03/2025 9:25 AM EDT Markell Salas MA * Poor appetite or overeating Answer Date of Assessment Author Not at all 08/03/2025 9:25 AM Markell Levy MA * Feeling bad about yourself - or that you are a failure or have let yourself or your family down Answer Date of Assessment Author Not at all 08/03/2025 9:25 AM EDClay Darnell MA * Trouble concentrating on things, such [...] 9:25 AM EDT Markell Salas MA * Patient Health Questionnaire-9 Score Answer Date of Assessment Author 0 08/03/2025 9:25 AM EDT Markell Salas MA documented as of this encounter Plan of Treatment Not on file documented as of this encounter Visit Diagnoses Not on filedocumented in this encounter Additional Health Concerns Assessment Noted Time PHQ-9 Depression Total Score: 0 08/03/20 9:25 AM EDT documented as of this encounter Care Teams Front Desk Assistant Relationship Specialty Start Date End Date Soraida Prieto MD [address] [place] [address] PCP - General Family Medicine 10/31/24 documented as of this encounter
--- OUTSIDE RECORDS SUMMARY | 2025-08-03 11:10 | XMS_ITS | Encounter Summary ---
Author Organization [employer] Address [address] [place] [address] Care Team Providers Care Learning And Development Manager Name Role Phone Soraida Prieto MD Primary Care Provider [phone] Reason for Visit * Reason Onset Date Comments Chart Prep 08/02/2025 Encounter Details Date Type Department Care Team ([facility] st Contact Info) Description 08/02/2025 Telephone [facility] [address] [place], [place] [phone] Soraida Prieto MD [address] [place] [address] Chart Prep Social History Tobacco Use Types Packs/Day Years Used Date Smoking Tobacco: Never Smokeless Tobacco: Current Chew Depression Answer Date Recorded Patient Health Questionnaire-9 Score 0 08/03/2025 Patient Health Questionnaire-9 Score 0 08/03/2025 Last PHQ-9: Questionnaire Data Not on file 0 08/03/2025 Housing Stability Answer Date Recorded What is your housing situation today? I have manju chyna 07/18/[address] you li [...] AM EDT documented as of this encounter Miscellaneous Notes * Telephone Encounter - Lavinia Salas MA - 08/02/2025 9:03 AM EDT Chart Prep Labs: done Images: done Referrals: complete Vaccines due: Covid, Flu, Tdap, RSV, Zoster, and DTAP Screenings: colonoscopy, eye exam, and foot exam Overdue care gaps: A1c, Glucose, SBIRT, and PHQ-9 documented in this encounter Plan of Treatment Not on file documented as of this encounter Visit Diagnoses Not on filedocumented in this encounter Care Teams Learning And Development Manager Relationship Specialty Start Date End Date Soraida Prieto MD [address] [place] [id number] PCP - General Family Medicine 10/31/24 documented as of this encounter
--- OUTSIDE RECORDS SUMMARY | 2025-08-03 11:10 | XMS_ITS | Encounter Summary ---
Author Organization [employer] Address [address] [place] [address] Care Team Providers Care Human Resources Benefits Administrator Name Role Phone Soraida Prieto MD Primary Care Provider [phone] Reason for Visit * Reason Comments Med Refill Encounter Details Date Type Department Care Team ([facility] st Contact Info) Description 08/01/2025 Refill [facility] [address] [place], [place] [phone] Soraida Prieto MD [address] [place], [place] [phone] Essential (primary) hypertension Social History Tobacco Use Types Packs/Day Years Used Date Smoking Tobacco: Never Smokeless Tobacco: Current Chew Housing Stability Answer Date Recorded What is [...] off services in your home? No 07/18/2024 Internet Access Answer Date Recorded Internet Access Q1 Yes 07/31/2024 Internet Access Q2 Not on file 07/31/2024 Sex and Gender Information Value Date Recorded Sex Assigned at Male 08/01/2024 10:21 AM EDT Legal Sex Male 2:36 PM EDT Gender Identity Male 08/01/2024 10:21 AM EDT Sexual Orientation Straight 08/01/2024 10 :21 AM EDT documented as of this encounter Plan of Treatment Not on file documented as of this encounter Visit Diagnoses Diagnosis Essential (primary) hypertension Unspecified essential hypertension documented in this encounter Care Teams Human Resources Benefits Administrator Relationship Specialty Start Date End Date Soraida Prieto MD [address] [place] [address] PCP - General Family Medicine 10/31/24 documented as of this encounter
--- OUTSIDE RECORDS SUMMARY | 2025-08-03 11:10 | XMS_ITS | Clinical Summary ---
Author Organization [facility] Address [address] [facility] [address] [place] [address] Phone Care Team Providers Care Development Lead Name Role Phone Unavailable Primary Care Provider [...] Colonoscopy 2004 Colorectal Cancer Screening: Sigmoidoscopy 2004 Influenza Vaccine (#1) 2025 Hepatitis B Vaccine Aged Out No longe r eligible based on patient's age to complete this topic
[2025-08-03 12:09] LABS: Alanine Aminotransferase 8 U/L (0-40); Albumin Level 4.2 g/dL (3.5-5.0); Alkaline Phosphatase 118 U/L (39-117); Anion Gap 10 (12-20); Aspartate Amino Transferase 29 U/L (5-37); Blood Urea Nitrogen 11 mg/dL (9-16); Calcium 9.3 mg/dL (8.4-10.2); Carbon Dioxide 28 mmol/L (22-29); Chloride 103 mmol/L (96-108); Cholesterol 97 mg/dL (<200); Estimated Glomerular Filt Rate > 60; HDL Cholesterol 35 mg/dL (>40); Potassium 4.4 mmol/L (3.3-5.1); Sodium 137 mmol/L (135-145); Total Protein 6.9 g/dL (6.5-8.0); Triglycerides 69 mg/dL (<150)
[2025-08-03 12:56] LABS: PSA,Total (Free>4and<10) 0.21 ng/mL (0.00-4.00)
== END 2025-08-03 10:15 | disposition home or self-care (01) ==
LOC: HO.CHCLDS 10:14
PROVIDERS: Visit Provider Student in an Organized Health Care Education/Training Program
DX: Z12.5 Encounter for screening for malignant neoplasm of prostate (principal); I10 Essential (primary) hypertension; E11.9 Type 2 diabetes mellitus without complications; R35.0 Frequency of micturition
CPT/HCPCS: 36415; 80048; 80061; 80076; 84153